=== PATIENT | female | born 1980 | race Caucasian/White ===

== ENCOUNTER 2020-04-28 11:00 | Outpatient (CLI) | payer OTHER | END 2020-04-28 23:59 | disposition home or self-care (01) | LOC: MSC 11:00 | PROVIDERS: ATTEND Internal Medicine | DX: H92.01 Otalgia, right ear (principal); L65.9 Nonscarring hair loss, unspecified; E11.40 Type 2 diabetes mellitus with diabetic neuropathy, unspecified; Z79.84 Long term (current) use of oral hypoglycemic drugs; L93.0 Discoid lupus erythematosus; M08.20 Juvenile rheumatoid arthritis with systemic onset, unspecified site; G89.29 Other chronic pain; J45.909 Unspecified asthma, uncomplicated; Z98.890 Other specified postprocedural states; K21.9 Gastro-esophageal reflux disease without esophagitis; F41.9 Anxiety disorder, unspecified; Z79.891 Long term (current) use of opiate analgesic; Z79.51 Long term (current) use of inhaled steroids; Z79.899 Other long term (current) drug therapy ==

== ENCOUNTER 2020-06-30 10:00 | Outpatient (CLI) | payer OTHER | END 2020-06-30 23:59 | disposition home or self-care (01) | LOC: MSC 10:00 | PROVIDERS: ATTEND Internal Medicine | DX: E11.9 Type 2 diabetes mellitus without complications (principal); Z79.84 Long term (current) use of oral hypoglycemic drugs; H92.01 Otalgia, right ear; Z71.2 Person consulting for explanation of examination or test findings; K76.0 Fatty (change of) liver, not elsewhere classified; L93.0 Discoid lupus erythematosus; L30.9 Dermatitis, unspecified; M08.20 Juvenile rheumatoid arthritis with systemic onset, unspecified site; G89.29 Other chronic pain; Z96.612 Presence of left artificial shoulder joint; J45.909 Unspecified asthma, uncomplicated; G62.9 Polyneuropathy, unspecified; K21.9 Gastro-esophageal reflux disease without esophagitis; F41.9 Anxiety disorder, unspecified; Z76.0 Encounter for issue of repeat prescription; Z79.51 Long term (current) use of inhaled steroids; Z79.1 Long term (current) use of non-steroidal anti-inflammatories (NSAID); Z79.891 Long term (current) use of opiate analgesic; Z79.899 Other long term (current) drug therapy ==

== ENCOUNTER 2021-08-23 12:49 | Inpatient (IN) | payer OTHER ==
[~2021-08-23] VITALS: Ht 149.9 cm; Wt 125.2 kg
--- NOTE | 2021-08-23 12:49 | NUR ---
PT BIB MOM C/O ABDOMINAL PAIN AND MID BACK PAIN SINCE MONDAY. PT IS AAOX4, NOT IN RESPIRATORY DISTRESS, HOOKED TO V/S MONITOR, KEPT RESTED AND COMFORTABLE. WILL CONTINUE TO MONITOR.
--- NOTE | 2021-08-23 13:05 | NUR ---
URINE SPECIMEN OBTAINED AND SENT TO LAB.
--- NOTE | 2021-08-23 13:10 | NUR ---
SEEN AND EXAMINED BY .
--- NOTE | 2021-08-23 13:20 | NUR ---
IV LINE ESTABLISHED BLOOD DRAWN AND SENT TO LAB.
--- NOTE | 2021-08-23 13:26 | NUR ---
CLINICAL AUDIOLOGIST AT BEDSIDE FOR ULTRASOUND.
[2021-08-23] MEDS ORDERED: ONDANSETRON HCL/PF 4 MG/2 ML VIAL ONE (13:29)
[2021-08-23] MEDS ORDERED: MORPHINE SULFATE INJ 4 MG/ML DISP.SYRIN ONE ×2 (13:29→15:26)
[2021-08-23] MEDS ORDERED: ONDANSETRON HCL/PF 4 MG/2 ML VIAL IVP ONE (13:30)
[2021-08-23] MEDS ORDERED: MORPHINE SULFATE INJ 2 MG/ML DISP.SYRIN IV ONE ×2 (13:30→15:30)
[2021-08-23] MEDS ORDERED: IV NS 0.9% 500 ML BAG IV ONE (13:30)
[2021-08-23 13:54] LABS: ALBUMIN 3.6 g/dL (3.4-5.0); BILIRUBIN,DIRECT 2.9 mg/dL (0.0-0.2); BILIRUBIN,TOTAL 5.8 mg/dL (0.2-1.0); CALCIUM, SERUM 8.7 mg/dL (8.5-10.1); CREATININE 0.7 mg/dL (0.6-1.3); POTASSIUM 5.7 mmol/L (3.5-5.1); TOTAL PROTEIN, SERUM 7.7 g/dL (6.4-8.2)
[2021-08-23 14:45] LABS: BILIRUBIN,URINE LARGE (NEGATIVE); COLOR,URINE YELLOW (YELLOW); LEUKOCYTE ESTERASE ,URINE TRACE (NEGATIVE); NITRITE, URINE NEGATIVE (NEGATIVE); PROTEIN,URINE 100 mg/dl (NEGATIVE); UGLUCOSE NEGATIVE (NEGATIVE)
[2021-08-23] MEDS ORDERED: CLON1TAB12 PO (14:52)
[2021-08-23] MEDS ORDERED: BECL10.6 INH (14:52)
[2021-08-23] MEDS ORDERED: HYDR-3972 PO (14:52)
[2021-08-23] MEDS ORDERED: HYDR4TAB57 PO (14:52)
[2021-08-23] MEDS ORDERED: IBUP-1957 PO (14:52)
[2021-08-23] MEDS ORDERED: GABA300C PO ×2 (14:52)
[2021-08-23] MEDS ORDERED: FLUT16SP16 (14:52)
[2021-08-23] MEDS ORDERED: ALBU8.5H8 IH (14:52)
[2021-08-23] MEDS ORDERED: ATEN50TA PO (14:52)
[2021-08-23] MEDS ORDERED: PANT40TA2 PO (14:52)
[2021-08-23] MEDS ORDERED: PROC10TA29 PO (14:52)
[2021-08-23] MEDS ORDERED: TIZA4TAB5 PO (14:52)
[2021-08-23] MEDS ORDERED: AZAT50TA18 PO (14:52)
[2021-08-23] MEDS ORDERED: CHOL100043 PO (14:52)
[2021-08-23] MEDS ORDERED: SITA100T PO (14:52)
[2021-08-23] MEDS ORDERED: PIPERACILLIN /TAZOBACTAM 3.375 G in IV D5W 50 ML IV ONE (15:00)
[2021-08-23] MEDS ORDERED: IV NS 0.9% 1,000 ML BAG IV ONE (15:00)
[2021-08-23 15:07] LABS: BASOPHILS # (AUTO) 0.1 K/uL (0.0-0.2); BASOPHILS % (AUTO) 0.8 % (0.0-2.0); EOSINOPHILS % (AUTO) 1.2 % (0.0-6.0); HEMATOCRIT 41 % (33-45); HEMOGLOBIN 12.8 g/dL (11.5-14.8); LYMPHOCYTES # (AUTO) 2.7 K/uL (0.8-4.8); LYMPHOCYTES % (AUTO) 23.3 % (20.0-44.0); MEAN CORPUSCULAR HGB CONC 32 g/dl (31.0-36.0); MEAN CORPUSCULAR VOLUME 82 fL (82-100); MONOCYTES # (AUTO) 0.9 K/uL (0.1-1.30); MONOCYTES % (AUTO) 7.7 % (2.0-12.0); NEUTROPHILS # (AUTO) 7.7 K/uL (1.8-8.9); PLATELET COUNT (AUTO) 276 K/uL (150-450); RED BLOOD CELL COUNT(AUTO) 4.95 MIL/uL (4.0-5.2); WHITE BLOOD COUNT (AUTO) 11.5 K/uL (4.3-11.0)
--- NOTE | 2021-08-23 15:26 | NUR ---
PAGED DR. COLON
[2021-08-23 15:28] LABS: BACTERIA,URINE None seen /HPF (None Seen); RBC,URINE 0-2 /HPF (0-2); SQUAMOUS EPITHELIAL CELL,UR 0-2 /HPF (None Seen)
--- NOTE | 2021-08-23 16:15 | NUR ---
Na hanson in [facility] - 08/23/21 at 1615 by TREVIN Patient discharged to home in stable condition. Written and verbal after care instructions given to Patient's mom verbalizes understanding of instruction.
--- NOTE | 2021-08-23 17:45 | NUR ---
JAYLA QUINONEZ AT BEDSIDE FOR EVAL.
--- NOTE | 2021-08-23 19:30 | NUR ---
MRSA SWAB COLLECTED AND SENT TO LAB. PATIENT'S BELONGINGS LIST DONE.
--- NOTE | 2021-08-23 19:40 | NUR ---
PT AMBULATORY TO RESTROOM WITH STEADY GAIT. ADLS DONE.
--- NOTE | 2021-08-23 20:24 | NUR ---
REPORT GIVEN TO CUAUHTEMOC Osuna RN FOR ABIGAIL
--- NOTE | 2021-08-23 21:00 | NUR ---
MS RN OPENING NOTE PT TRANSPORTED VIA GURNEY TO UNIT AT THIS TIME. PT ADMITTED UNDER DR QUINONEZ FOR ADMITTING DX OF JAUNDICE. A/O X4 AND ABLE TO MAKE NEEDS KNOWN. PT IS AMBULATORY WITH STEADY GAIT AND SKIN IS INTACT. PT ON O2 @ 2 LPM VIA NC, TOLERATING WELL. NO SOB OR S/S OF RESPIRATORY DISTRESS AT THIS TIME. BREATHING EVEN AND UNLABORED. IV ACCESS RAC 18 GAUGE SL, INTACT AND PATENT. PT ORIENTED TO ROOM, UNIT, AND STAFF. PT BELONGINGS LIST SIGNED AND ALL BELONGINGS ACCOUNTED FOR. SAFETY PRECAUTIONS IN PLACE. BED IN LOWEST LOCKED POSITION, HOB ELEVATED, SIDE RAILS UP X2, AND CALL LIGHT AND TABLE WITHIN REACH. ALL NEEDS MET AT THIS TIME.
--- NOTE | 2021-08-23 21:11 | NUR ---
PT TRANSFERRED TO [facility] VIA HOSPITAL PROTOCOL. ALL BELONGINGS WITH PT
[2021-08-23 22:00] VITALS: BP 171/121
[2021-08-23] MEDS ORDERED: ENOXAPARIN SODIUM 40 MG/0.4 ML DISP.SYRIN SQ SCH (22:00)
[2021-08-23] MEDS ORDERED: ACETAMINOPHEN 325 MG TABLET PO PRN (22:00)
[2021-08-23] MEDS ORDERED: BUMETANIDE INJ 0.25 MG/ML VIAL IV ONE (22:00)
[2021-08-23] MEDS ORDERED: Z GUARD REMEDY 4 OZ OINT TP PRN (22:00)
[2021-08-23] MEDS: HYDROMORPHONE INJ 2 MG/ML DISP.SYRIN IV PRN (22:02)
--- NOTE | 2021-08-23 22:02 | NUR ---
RN NOTE PT COMPLAINED OF 8/10 ABDOMINAL PAIN. ADMINISTERED DILAUDID 1 MG IVP FOR SEVERE PAIN ORDERED. MADE COMFORTABLE IN BED. ALL NEEDS MET AT THIS TIME.
[2021-08-23 22:09] LABS: CALCIUM, SERUM 8.4 mg/dL (8.5-10.1); CREATININE 0.8 mg/dL (0.6-1.3); POTASSIUM 3.6 mmol/L (3.5-5.1)
--- NOTE | 2021-08-23 22:47 | NUR ---
RN NOTE PT REQUESTING MEDICATION THAT THEY TAKE AT HOME. HAY KENDALL MADE AWARE MED RECONCILIATION NOT DONE AND STATED HE WOULD COMPLETE IT "LATER". CHARGE NURSE MARY MADE AWARE.
[2021-08-24] MEDS: ONDANSETRON HCL/PF 4 MG/2 ML VIAL IVP PRN ×3 (00:54→21:56)
--- NOTE | 2021-08-24 00:54 | NUR ---
RN NOTE PT COMPLAINED OF NAUSEA. ADMINISTERED ZOFRAN 4 MG ORDERED FOR NAUSEA. ALL NEEDS MET AT THIS TIME.
--- NOTE | 2021-08-24 02:22 | NUR ---
RN NOTE PT STILL REQUESTING MEDICATION THAT THEY TAKE FROM HOME. HAY KENDALL GAVE NEW ORDERS TO CONTINUE THE NIGHT TIME MEDICATIONS SPECIFIED BY THE PATIENT. NEW ORDERS CARRIED OUT.
[2021-08-24] MEDS ORDERED: clonazePAM 1 MG TABLET PO PRN (02:30)
[2021-08-24] MEDS: GABAPENTIN 300 MG CAPSULE PO SCH ×2 (02:37→21:50)
[2021-08-24] MEDS: TIZANIDINE HCL 4 MG TABLET PO SCH ×2 (02:38→21:50)
[2021-08-24] MEDS: HYDROMORPHONE INJ 2 MG/ML DISP.SYRIN IV PRN ×4 (04:18→22:05)
[2021-08-24 06:33] LABS: ALBUMIN 3.6 g/dL (3.4-5.0); BILIRUBIN,TOTAL 4.8 mg/dL (0.2-1.0); CALCIUM, SERUM 8.3 mg/dL (8.5-10.1); CREATININE 0.7 mg/dL (0.6-1.3); MAGNESIUM 1.6 mg/dL (1.8-2.4); PHOSPHORUS 3.8 mg/dL (2.5-4.9); POTASSIUM 3.4 mmol/L (3.5-5.1); TOTAL PROTEIN, SERUM 7.7 g/dL (6.4-8.2)
[2021-08-24 06:40] LABS: BASOPHILS # (AUTO) 0.1 K/uL (0.0-0.2); BASOPHILS % (AUTO) 0.6 % (0.0-2.0); EOSINOPHILS % (AUTO) 0.2 % (0.0-6.0); HEMATOCRIT 38 % (33-45); HEMOGLOBIN 12.4 g/dL (11.5-14.8); LYMPHOCYTES # (AUTO) 1.9 K/uL (0.8-4.8); LYMPHOCYTES % (AUTO) 14.7 % (20.0-44.0); MEAN CORPUSCULAR HGB CONC 32 g/dl (31.0-36.0); MEAN CORPUSCULAR VOLUME 82 fL (82-100); MONOCYTES # (AUTO) 0.8 K/uL (0.1-1.30); MONOCYTES % (AUTO) 6.2 % (2.0-12.0); NEUTROPHILS # (AUTO) 10.3 K/uL (1.8-8.9); NEUTROPHILS % (AUTO) 78.3 % (43.0-81.0); PLATELET COUNT (AUTO) 306 K/uL (150-450); RED BLOOD CELL COUNT(AUTO) 4.68 MIL/uL (4.0-5.2); WHITE BLOOD COUNT (AUTO) 13.2 K/uL (4.3-11.0)
--- NOTE | 2021-08-24 06:44 | NUR ---
MS RN CLOSING NOTE PT AWAKE IN BED. A/O X4 AND ABLE TO MAKE NEEDS KNOWN. PT ON O2 @ 3 LPM VIA NC, TOLERATING WELL. NO SOB OR S/S OF RESPIRATORY DISTRESS AT THIS TIME. BREATHING EVEN AND UNLABORED. IV ACCESS RAC 18 GAUGE SL, INTACT AND PATENT. ALL DUE MEDS GIVEN ORDERED. SAFETY PRECAUTIONS IN PLACE AT ALL TIMES. BED IN LOWEST LOCKED POSITION, HOB ELEVATED, SIDE RAILS UP X2, AND CALL LIGHT AND TABLE WITHIN REACH. ALL NEEDS MET AT THIS TIME AND WILL ENDORSE TO ONCOMING NURSE FOR ABIGAIL.
--- NOTE | 2021-08-24 07:32 | NUR ---
MS RN OPENING NOTES: RECEIVED PT IN BED AWAKE AND ORIENTED X 4 AND ABLE TO VERBALIZED NEEDS. NO SOB NOTED OR CARDIAC DISTRESS NOTED ON O2 INHALATION @2LPM VIA NC AND TOLERATING WELL. NOTED W/ IV PERIPHERAL LINE @ RAC G#18 PATENT AND INTACT, SALINE LOCKED.. SAFETY PRECAUTIONARY MEASURES MAINTAINED: BED LOCKED AND IN LOWEST POSITION, SIDERAILS UP, X2. CALL BUTTON IN EASY REACH FOR HELP.
[2021-08-24 08:00] VITALS: BP 155/77
[2021-08-24] MEDS ORDERED: PANTOPRAZOLE 40 MG VIAL IV SCH (09:00)
[2021-08-24] MEDS ORDERED: POTASSIUM CHLORIDE 20 MEQ TAB.PRT.SR PO SCH (09:30)
[2021-08-24] MEDS: Magnesium 1GM/D5W 100ML PREMIX 100 ML IV SCH ×2 (09:58→11:32)
[2021-08-24] MEDS: PIPERACILLIN /TAZOBACTAM 3.375 G in IV D5W 50 ML IV SCH ×2 (13:24→17:25)
[2021-08-24 13:53] LABS: THYROID STIMULATING HORMONE 1.579 uIU/mL (0.358-3.74)
--- NOTE | 2021-08-24 14:16 | NUR ---
RN NOTES CALLED TOMEAK HORTON AND ASKED WHEN WILL HE DO HIDA SCAN FOR PT, HE STATED THAT HE WILL COME TO TAKE PT AT 1630 THIS AFTERNOON.
[2021-08-24] MEDS ORDERED: LORAZEPAM INJ 2 MG/ML VIAL IV PRN (15:30)
--- NOTE | 2021-08-24 15:49 | NUR ---
RN NOTES PT'S IV ACCESS ON RAC G#18 DISLODGED WHEN SHE WENT FOR CT. NEW IV ACCESS INSERTED TO LFA G#22.
[2021-08-24 16:00] VITALS: BP 183/121
--- NOTE | 2021-08-24 18:30 | NUR ---
RN NOTES PT ON ONGOING HIDA SCAN AND C/O BACK PAIN. DILAUDID 1MG IVP ADMINISTERED AT 1830. WILL CONTINUE TO MONITOR AND REASSESS PT.
--- NOTE | 2021-08-24 18:38 | NUR ---
MS RN CLOSING NOTES: PATIENT IN BED, AWAKE AND ORIENTED X4, ABLE TO VERBALIZED NEEDS. NO CARDIAC DISTRESS NOTED. PATIENT NOTED WITH SOB WHEN WALKING/ UPON EXERTION AND RELIEVED WHEN HOOKED TO O2 INHALATION @3 LPM VIA NC. PATIENT ON NPO PER MD DUE TO DIAGNOSTIC PROCEDURE (HIDA SCAN). WITH IV PERIPHERAL LINE ON RIGHT FOREARM G#22 PATENT AND INTACT AND SALINE LOCKED. SAFETY PRECAUTIONARY MEASURES MAINTAINED: BED LOCKED AND IN LOWEST POSITION, SIDERAILS UP, X2. CALL BUTTON IN EASY REACH FOR HELP. WILL ENDORSED TO NEXT SHIFT FOR ABIGAIL.
--- NOTE | 2021-08-24 18:40 | NUR ---
NM:HIDA SCAN WAS COMPLETED. TECH:RB.
--- NOTE | 2021-08-24 19:24 | NUR ---
RN NOTES PT IS ON HIDA SCAN AT THIS TIME. ENDORSED TO MONITOR TECHNICIAN RN THAT PT WILL HAVE ERCP TOMORROW BY DR COLON. NPO TO BE ENFORCED POST MIDNIGHT.
[2021-08-24 20:00] VITALS: BP 157/101
--- NOTE | 2021-08-24 20:00 | NUR ---
RN NOTE PT BACK FROM HIDA SCAN BUT SAYS THEY'LL PICK HER UP AGAIN IN ABOUT AN HOUR TO FINISH SCAN
--- NOTE | 2021-08-24 20:30 | NUR ---
RN NOTE RECEIVED CALL FROM YAMILE PURI SAYING PT IS TRANSFERRING TO [facility]. PT WAS UNAWARE. SPOKE WITH CHARGE NURSE AND SHE WILL CLARIFY
--- NOTE | 2021-08-24 21:00 | NUR ---
RN NOTE PT WENT BACK DOWN TO FINISH HIDA SCAN
--- NOTE | 2021-08-24 22:34 | NUR ---
RN NOTE SPOKE WITH ON-CALL HOSPITALIST, HARSHA GARZA,[employer] , PT AND FAMILY ARE NOW AGREEING FOR DISCHARGE/TRANSFER TO [facility]. RECEIVED ORDER OK TO DC. ALSO SPOKE WITH REGAL REP, PARVEZ, WILL CALL FOR TRANSPORT AMBULANCE FOR ENDORSEMENT CLERK TONIGHT.
--- NOTE | 2021-08-24 23:30 | NUR ---
RN NOTE REPORT GIVEN TO RNNIKOLAY, AT [facility]
[2021-08-25] MEDS ORDERED: IPRATROPIUM NEB FS 0.5 MG/2.5 ML AMPUL.NEB NEB PRN
[2021-08-25] MEDS ORDERED: ALBUTEROL FS 2.5 MG/0.5 ML VIAL.NEB NEB PRN
[2021-08-25] MEDS: PIPERACILLIN /TAZOBACTAM 3.375 G in IV D5W 50 ML IV SCH (00:20)
--- NOTE | 2021-08-25 01:44 | NUR ---
RN NOTE PICKED UP BY [facility] WITH TWO ATTENDANTS VIA GURNEY FOR TRANSPORT TO [facility]. ALL PERTINENT PAPERS SENT. ALL BELONGINGS SENT WITH PT. DALLAS PETERSEN.
== END 2021-08-25 01:50 | disposition short-term general hospital (02) | DRG 444 ==
LOC: ER 12:51 → TRANSITION 18:56 → MED 20:29
PROVIDERS: ADMIT Nurse Practitioner Acute Care; ATTEND Registered Nurse
DX: K80.01 Calculus of gallbladder with acute cholecystitis with obstruction (principal); J96.01 Acute respiratory failure with hypoxia; E87.1 Hypo-osmolality and hyponatremia; N17.9 Acute kidney failure, unspecified; Z68.43 Body mass index [BMI] 50.0-59.9, adult; E87.5 Hyperkalemia; Z20.822 Contact with and (suspected) exposure to COVID-19; K58.9 Irritable bowel syndrome, unspecified; E28.2 Polycystic ovarian syndrome; I10 Essential (primary) hypertension; M06.9 Rheumatoid arthritis, unspecified; M79.7 Fibromyalgia; M06.1 Adult-onset Still's disease; Z90.710 Acquired absence of both cervix and uterus; Z88.6 Allergy status to analgesic agent; Z88.5 Allergy status to narcotic agent; Z88.8 Allergy status to other drugs, medicaments and biological substances; E80.6 Other disorders of bilirubin metabolism; M32.9 Systemic lupus erythematosus, unspecified; E66.01 Morbid (severe) obesity due to excess calories; J44.9 Chronic obstructive pulmonary disease, unspecified; Z79.84 Long term (current) use of oral hypoglycemic drugs; Z79.899 Other long term (current) drug therapy; Z79.51 Long term (current) use of inhaled steroids; E86.1 Hypovolemia; F40.240 Claustrophobia; R74.01 Elevation of levels of liver transaminase levels; E11.9 Type 2 diabetes mellitus without complications; D72.829 Elevated white blood cell count, unspecified
CPT/HCPCS: 36415; 71045-TC; 76705-TC; 78226; 80048-TC; 80053-TC; 80061-TC; 80074; 80076-TC; 81001; 83540-TC; 83690-TC; 83735-TC; 84100-TC; 84443-TC; 84703-TC; 85025-TC; 85730-TC; 87081-TC; 93307-TC; A9537; C9113; C9803; G0378; J1170; J1650; J2270; J2405; J2543; J3475; J3490; J7030; J7040; J7060